=== PATIENT | male | born 1940 | race Caucasian/White ===

== ENCOUNTER 2020-04-21 | Inpatient (IN) | payer OTHER ==
[~2020-04-21] VITALS: Ht 162.6 cm; Wt 86.0 kg
--- NOTE | ~2020-04-21 | EMS ---
[address] [address] EMS Patient Care Report Name: ARSEN SCHOFIELD Room #: REG [facility]#: [id number] Admission: 04/21/20 Attend Phys: Discharge: Date of : 38 Report #: [id number] THIS REPORT FOR: //name// Report Transmitted: 04/20/2020 23:45 EMS Care Summary [facility] MED-ACT Incident [id number] @ 04/20/2020 23:24 Incident Location [address] [place] [address] Patient ARSEN SCHOFIELD Male, 79 Years 1940 Patient Address [address] [place] [address] Patient History Asthma,Hypertension (HTN),Back Pain (Chronic),Type 2 Diabetes, Patient Allergies Iodine, Patient Medications Potassium, Eliquis, Meclizine, Pramipexole, Gabapentin, Atorvastatin, Pantoprazole, Metoprolol, Aspirin, Torsemide, Amiodarone, Oxycodone, Chief Complaint Suicidal ideations Disposition Transported No Lights/[place] Reason Psychiatric Problem/Abnormal Behavior/Suicide Attempt Transported To [facility] Narrative Arriving on scene to find the patient, Arsen Schofield, standing at the doorway [address] [address] EMS Patient Care Report Name: ARSEN SCHOFIELD Room #: REG ER [facility]#: [id number] Admission: 04/21/20 Attend Phys: Discharge: Date of : 38 Report #: [id number] and appearing to be upset. Arsen informed EMS that he "just want to end the pain once and for all". He stated that he has been feeling like this for a couple of weeks. He stated that he had informed his daughter and talk to a doctor about his pain and suicidal ideations. When EMS asked what they told him? He replied "just to keep on eye on me". He stated that he had a plan to harm himself with overdosing on narcotics. Arsen rated his lower back pain to be a 10 out of 10 and described it as shooting down to his right leg. He stated that he would like to be transported to [facility]. He was able to ambulate out of his apartment and onto the cot. Transporting to [facility], there were no other additional findings on continuous assessments. Arriving at [facility] ED, Arsen was taken to room 8 and moved via lateral sheet drag onto the hospital bed. Report and care was given to RN. Initial Vitals @23:55P: 115,BP: 136/78,Glucose: 98,SpO2: 96, @23:45P: 92,SpO2: 96, @23:35P: 73,R: 16,BP: 154/79,Pain: 10/10,GCS: 15,Temp: 97.6F,SpO2: 97,Revised Trauma: 12, Assessments @23:44MENTAL:Person Oriented,Time Oriented,Event Oriented,Place Oriented,SKIN:HEENT:Head/Face: No Abnormalities,Neck/Airway: No Abnormalities,LUNG SOUNDS:General: No Abnormalities,ABDOMEN:General: No Abnormalities,PELVIS//GI:No Abnormalities,EXTREMITIES:Left Arm: Other,Right Arm: Other,Left Leg: No Abnormalities,Right Leg: No Abnormalities,PULSE:NEURO:No Abnormalities, Impression Suicidal Ideation Procedures @23:50Oxygen FlowRate: 2 Device: Nasal Cannula (NC) Response: ImprovedSucceeded Timeline 23:21,Call Received 23:21,Psap Call 23:24,Dispatched 23:25,En Route 23:28,On Scene 23:32,At Patient 23:35,BP: 154/79 M,PULSE: 73,RR: 16 R,SPO2: 97 Ox,ETCO2: ,BG: ,PAIN: 10,GCS: 15, 23:43,Depart Scene 23:45,BP: / M,PULSE: 92,RR: R,SPO2: 96 Ox,ETCO2: ,BG: ,PAIN: ,GCS: , 23:50,Oxygen FlowRate: 2 Device: Nasal Cannula (NC) Response: ImprovedSucceeded, 23:55,BP: 136/78 M,PULSE: 115,RR: R,SPO2: 96 Ox,ETCO2: ,B,PAIN: ,GCS: , [facility] [address] [place] [address] EMS Patient Care Report Name: ARSEN SCHOFIELD [id number] Admission: 04/21/20 Attend Phys: Discharge: Date of : 38 Report #: [id number] 23:57,At Destination 00:12,Call Closed Disclaimer v1.1 Copyright 2020 [employer] This EMS Care Summary contains data elements from the applicable legal record (which may be displayed differently). It is designed to provide pertinent information for the following purposes: continuity of care, clinical quality, and state data reporting. The complete legal record is available to ED staff and administrators of the receiving hospital in [employer]'s Patient Tracker. All data is provided "as is."
[2020-04-21 00:02] VITALS: BP 119/82
[2020-04-21 01:46] LABS: URINE BILIRUBIN NEGATIVE (Negative); URINE BLOOD NEGATIVE (Negative); URINE CLARITY CLEAR; URINE COLOR YELLOW; URINE GLUCOSE-RANDOM* NEGATIVE (Negative); URINE KETONES NEGATIVE (Negative); URINE LEUKOCYTES-REFLEX NEGATIVE (Negative); URINE NITRITE-REFLEX NEGATIVE (Negative); URINE PROTEIN (DIPSTICK) NEGATIVE (Negative); URINE UROBILINOGEN 0.2 E.U./dl (0.2-1.0)
[2020-04-21 01:50] LABS: ABSOLUTE NEUTROPHILS 2.8 thou/uL (1.4-8.2); BASOPHILS 1.4 % (0.0-2.0); EOSINOPHILS 4.3 % (0.0-3.0); HEMATOCRIT 37.2 % (42.0-52.0); LYMPHOCYTES 25.1 % (24.0-44.0); MCH 31.8 pg (26.0-34.0); MCHC 34.8 g/dL (28.0-37.0); MCV 91.4 fL (80.0-100.0); MONOCYTES 9.5 % (1.0-8.0); PLATELET COUNT 170 thou/uL (150-400); POLYS 59.7 % (36.0-66.0); RBC 4.07 mil/uL (4.50-6.00); RDW 14.2 % (10.5-14.5); WBC 4.6 thou/uL (4.0-11.0)
[2020-04-21 01:52] LABS: ANION GAP 8 mmol/L (7-16); BUN 6 mg/dL (7-18); CALCIUM 8.1 mg/dL (8.5-10.1); CHLORIDE 99 mmol/L (98-107); CO2 25 mmol/L (21-32); CREATININE 0.9 mg/dL (0.7-1.3); GLUCOSE 101 mg/dL (74-106); POTASSIUM 3.8 mmol/L (3.5-5.1); SODIUM 132 mmol/L (136-145)
[2020-04-21 01:55] LABS: AMP/METHAMP Negative (Negative); BARBITURATES Negative (Negative); BENZODIAZEPINES Negative (Negative); COCAINE Negative (Negative); METHADONE Negative (Negative); OPIATES Negative (Negative); PCP Negative (Negative)
[2020-04-21 01:59] LABS: ALBUMIN 3.2 g/dL (3.4-5.0); SALICYLATE < 2.8 mg/dL (2.8-20.0); SGOT 23 U/L (15-37); SGPT 29 U/L (30-65); TOTAL BILIRUBIN 0.4 mg/dL (0.2-1.0); TOTAL PROTEIN 6.1 g/dL (6.4-8.2)
--- NOTE | 2020-04-21 02:02 | NUR ---
CALLED [facility] FOR CONSULT
[2020-04-21] MEDS ORDERED: EFFER-K 10 MEQ10 ME1 PO (04:57)
[2020-04-21] MEDS ORDERED: ELIQUIS2.5 MG PO (04:57)
[2020-04-21] MEDS ORDERED: LIPITOR10 MG PO (04:58)
[2020-04-21] MEDS ORDERED: PERCOCET 5-3251 EACH PO (04:58)
[2020-04-21] MEDS ORDERED: PROTONIX 20 MG20 MG PO (04:59)
[2020-04-21] MEDS ORDERED: TOPROL XL100 MG PO (04:59)
[2020-04-21] MEDS ORDERED: TORSEMIDE5 MG PO (05:00)
[2020-04-21] MEDS ORDERED: ASA81BEC PO (05:00)
[2020-04-21] MEDS ORDERED: NEURONTIN100 MG (05:00)
[2020-04-21] MEDS ORDERED: MECLIZINE HCL25 M1 (05:00)
[2020-04-21] MEDS ORDERED: PACERONE100 MG (05:01)
[2020-04-21] MEDS ORDERED: NEURONTIN 400M400 M2 PO (05:03)
[2020-04-21] MEDS ORDERED: TORSEMIDE20 MG PO (05:28)
--- NOTE | 2020-04-21 08:58 | EKG ---
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: [facility] : 1940 Requested By: Ishmael Perales Order Number: [id number] MD: Ron Ferrer Measurements Intervals Mcleod Rate: 61 P: IN: 166 QRS: -10 QRSD: 148 T: -5 QT: 480 QTc: 484 Interpretive Statements Sinus rhythm Right bundle branch block Possible inferior infarct, age indeterminate Compared to ECG 01/12/2005 16:43:38 Right bundle-branch block now present Electronically Signed On 04-21-2020 8:58:44 CDT by Ron Ferrer [email or web address] <ELECTRONICALLY SIGNED> By: Ron Ferrer MD, [facility] 04/21/20 0858 0120 0120 Ron Ferrer MD, [facility] /EPI
[2020-04-21 13:32] VITALS: BP 129/77
[2020-04-21 14:50] VITALS: BP 105/72
--- NOTE | 2020-04-21 14:54 | NUR ---
Sw met with pt to complete the intake assessment and TP, this incldued getting a correct phone nymber for May his daughter [phone]. This was reported to the unit control worker to correct.
--- NOTE | 2020-04-21 14:55 | NUR ---
PT ARRIVED [facility]IA [facility]. PT CALLED [facility] HOTLINE FOR THOUGHTS OF WANTING TO TAKE HIS OXYCODONE MEDICATION TO NOT WAKE UP. PT HAS DEALT WITH PAIN TO HANDS, ARMS, LEGS, AND BACK FOR 2-3 YEARS. PT LIVES ON OWN. PT USES WALKER TO AMBULATE. PT STATED PAIN IS 8 ON 1-10 SCALE AND FEELS LIKE AN ACHE TO THROBBING. PT IS PURSED BREATHING WITH ADMISSION. PT STATED HE SEEN MORTGAGE PROCESSING MANAGER THIS WEEK AND HE SAID HIS LUNGS ARE GOOD. PT STATED HE GOES TO [facility] FOR PAIN OR SOA. PT DOES USE CPAP AT NIGHT FOR SLEEP APNEA. PT STATED HE HAS RESTLESS LEGS AND HIS FATHER, SON, AND BROTHER HAS IT ALSO. HE SAYS HIS APPETITE IS LOW AND NOT BEEN HUNGRY SINCE SAT. STATED HE CAN EAT POPCORN OK. WHILE SITTING WITH THIS SAFETY ASSISTANT PT STATED HE WAS GETTING HUNGRY. PT DRINKING WATER OK. PT HAS DEFIBULATOR TO LEFT CHEST. LUNGS ARE CLEAR.
--- NOTE | 2020-04-21 15:56 | NUR ---
Pt did not join group because he was visiting with the
[2020-04-21] MEDS ORDERED: DULOXETINE HCL30 MG PO (16:02)
[2020-04-21] MEDS ORDERED: MIRAPEX0.5 MG PO (16:02)
[2020-04-21] MEDS ORDERED: MELOXICAM15 MG PO (16:03)
[2020-04-21 17:39] LABS: FOLIC ACID 10.6 ng/mL (8.6-58.9); TSH 0.882 uIU/mL (0.358-3.740)
--- NOTE | 2020-04-21 19:01 | NUR ---
CALLED RAFA HIS DAUGHTER, ABOUT BRINGING HIS CPAP FROM HOME. LEFT MESSAGE ON PHONE AND SHE CALLED BACK. UNABLE TO TALK TO HER LEFT MESSAGE AGAIN.
[2020-04-21 19:34] VITALS: BP 102/66
--- NOTE | 2020-04-22 02:34 | NUR ---
Pt alert and oriented x3. Pt was in his room at time of assessment. Pt was calm and cooperative with assessment. Pt agreed to anxiety but denied depression. Pt denies SI/HI/AH/VH. Pt took meds whole. Percoset given for back pain of 6. Pt's dtr brought pt's home cpap. Dr Montenegro ok'd pt using cpap. Pt is 1:1 while on cpap due to being admitted for SI. Pt voids independently via urianls. Pt ambulates via walker. Fall precautions in place. Pt has a rojas in reach to ring when needing assistance. Will continue to monitor.
[2020-04-22 06:58] LABS: CALCIUM 8.2 mg/dL (8.5-10.1)
[2020-04-22 07:40] VITALS: BP 103/61
[2020-04-22 10:46] VITALS: BP 103/61
--- NOTE | 2020-04-22 11:19 | NUR ---
Pt was up and about using walker this Am. Arsen ate most of the food offered this am .Pt was seen by Dr Ching . Upon Dr Ching 's request Arsen's daughter who is Sherif DPOD to find out if Heparin is an allery. Both Arsen and OLEKSANDR said "NO" to any other allergy besides Iodine in contrast dye. "YES" to wanting to be DNR. Dr Ching notified via phone. Arsen laughted when asked if he had any SI, HI or Hallucinations of any kind, and said 'NO'. Pain level was 4/5 and refused any pain medication offered at this time. Arsen's assesment was as follows, heart regular , pedal pulse equal, bowel sound active. No edema noted. Arsen talked to his daughter via phone and said he was happy he did. DNR braclet applied to Sherif arm.
[2020-04-22 19:32] VITALS: BP 99/66
--- NOTE | 2020-04-22 21:53 | NUR ---
Care assumed of patient at 1915: Patient seated in bed at start of shift reading. Alert and oriented x4. Calm, pleasant and cooperative. Denies SI/HI/AH/VH. States that he feels "much better" since he has been in the hospital. Patient denies depression. Reports feeling anxious to get home. Patient goal directed. Reports pain to his back rated 5/10. Patient received PRN pain medication prior to shift starting. States medication was helpful. Patient took HS medication whole without difficulty. Declined HS snack but requested orange juice instead. Patient continent of bladder. Patient did request a Bible and one was found for him. Patient appreciative. Patient currently seated in dayroom reading Bible at this time.
[2020-04-23 07:50] VITALS: BP 120/67
--- NOTE | 2020-04-23 09:16 | NUR ---
Assumed care 0700. Received Tylenol PRN for right sided back pain this AM. Went to lie down right after breakfast, Got an applesauce after breakfast to fill him up. Alert and oriented to person, day, time, place, purpose. Says he no longer feels suicidal. He is encouraged by anticipation of seeing pain clinic. Denies suicidal ideation. Denies HI. Conversation is not with delusional content. No reports/indicators of AH/VH. He ws instructed on availability of hotlines to call should hefeel suicidal in the future. IM and SQ meds discussed and their benefits.
--- NOTE | 2020-04-23 16:11 | NUR ---
Quiet, cooperative, compliant. Goes to bed when not engaged in program. No further offered complaints.
[2020-04-23 19:35] VITALS: BP 103/61
[2020-04-23 21:45] VITALS: BP 103/61
--- NOTE | 2020-04-24 01:47 | NUR ---
Assumed care of patient this pm shift. Patient was sitting in the mileu with peers watching tv at the start of the shift. Patient in good spirits calm and cooperative. Patient is medication adherent and takes medications as scheduled. Patient states that he is ready to get out of here and to pain management for his back. Patient takes medications whole with thin fluids. Patient ambulates with a walker. Patients affect is euthymic. Patient is alert and oriented to time, place, person, and situation. Patients assessment shows no signs of acute distress. Breath sounds are clear, bowel sounds hypoactive, s1 s2 heard with auscultation. We will continue to monitor per hospital policy.
[2020-04-24 06:00] LABS: ABSOLUTE NEUTROPHILS 3.5 thou/uL (1.4-8.2); BASOPHILS 1.2 % (0.0-2.0); EOSINOPHILS 4.7 % (0.0-3.0); HEMOGLOBIN 14.5 gm/dL (14.0-18.0); LYMPHOCYTES 27.9 % (24.0-44.0); MCH 31.1 pg (26.0-34.0); MCHC 33.7 g/dL (28.0-37.0); MCV 92.3 fL (80.0-100.0); MONOCYTES 9.5 % (1.0-8.0); PLATELET COUNT 210 thou/uL (150-400); POLYS 56.7 % (36.0-66.0); RBC 4.66 mil/uL (4.50-6.00); RDW 14.2 % (10.5-14.5); WBC 6.1 thou/uL (4.0-11.0)
[2020-04-24 06:09] LABS: CALCIUM 8.4 mg/dL (8.5-10.1); CREATININE 1.6 mg/dL (0.7-1.3); MAGNESIUM 2.1 mg/dL (1.8-2.4); POTASSIUM 3.6 mmol/L (3.5-5.1)
[2020-04-24 07:16] VITALS: BP 99/61
--- NOTE | 2020-04-24 11:49 | NUR ---
Pt was oob in hallway with walker this am. Pt took SQ shot with heparin and IM shot with Vit B12, with no resistance . Oral medication taken as well. pt ate all food offered to him this am. Assesment as follows, lungs x2 clear, bowel sounds faint , pedeal pulse equalx2. Pt was unable to get to room to urinate this am, he asked to have a change of clothes,and was give as he asked. this according to Arsen was the first time this happened. DR aware that pt c/o constipation. Fluids encouraged , staff continues to observe pt.
--- NOTE | 2020-04-24 14:51 | NUR ---
JANELLE had a meeting with Pt, Dr. Clayton and Pt's daughter Elis. Pt will be discharged 04/25/20 @ 3:30pm. Elis will be transporting Pt. Pt will need a psychiatry appointment with Dr. Toro. An appointment with his PCP for a referral to a pain mangement clinic. Pt has appointment with Dr. Toro 05/24/2020 @ 2:30 pm. JANELLE reached out to Dr. Baltazar ( Dr. Draper) [phone] for a call back.
[2020-04-24 19:14] VITALS: BP 103/52
[2020-04-24 19:20] VITALS: BP 132/70
--- NOTE | 2020-04-25 04:54 | NUR ---
04-24-20 CARE TRANSFERED 1914 OBSERVED PT SITTING IN DAY ROOM. 1919 PT AAOX3, CALM AND COOPERATIVE, VS MANUAL LEFT ARM SITTING B/P 132/70, P 60, R 16, T 97.4 TEMPORAL; O2 SAT 99% RA RR EVEN AND NONLABORED. PT REPORTS PAIN 6 ON 0-10 SCALE. PT DENIES SI/SH/HI/VAH. PT REPORTED HAVING A BM TODAY AFTER DINNER. DURING MEDICATION ADMIN PT HAD NO DIFFICULTIES. PT REQUESTED CPAP, AND OBSERVED PT GETTING CPAP ON, DURING THIS TIME PT IS TO BE 1:1 WHILE USING CPAP; LATER PT REPORTED LOWER BACK AND NASUATED PT SCALED PAIN 8 ON 0-10 SCALE PRN MEDICATION ADMIN. THROUGHOUT NURSING ROUNDS ZERO S/S OF ACUTE EMOTIONAL OR MEDICAL DISTRESS NOTED. WILL CONTINUE TO MONITOR PER [facility] PROTOCOL.
[2020-04-25 06:27] LABS: CALCIUM 7.9 mg/dL (8.5-10.1); CREATININE 1.4 mg/dL (0.7-1.3); POTASSIUM 3.6 mmol/L (3.5-5.1)
[2020-04-25 07:23] VITALS: BP 99/54
[2020-04-25] MEDS ORDERED: REMERON 30 MG T30 M1 PO (11:51)
[2020-04-25] MEDS ORDERED: COLACE 100 MG100 MG PO (11:53)
[2020-04-25] MEDS ORDERED: VITAMIN D325 MC1 PO (11:55)
--- NOTE | 2020-04-25 12:20 | NUR ---
SW met with Pt and completed a safety plan. SW provided discharge follow up appointment printout to Pt.
[2020-04-25 12:41] VITALS: BP 99/55
--- NOTE | 2020-04-25 16:37 | NUR ---
DISCHARGE INSTRUCTIONS REVIEWED WITH PT INCLUDING MEDICATIONS DOSES,TIMES,ADMINISTRATION AND PRESCRIPTIONS PROVIDED-PT STATES HE DOES HIS OWN MEDICATION AT HOME AND DENIES QUESTIONS/CONCERNS. DENIES SI/SH/HI AND STATES FEELS EAGER TO LEAVE. DOES REPORT BACK PAIN RATED AN 8 ON 1-10 SCALE AT APPROX. 1100-REQUESTED AND RECEIVED PERCOCET5/325 PO PRN WITH STATED GOOD RESULTS-PAIN DECREASING TO APPROX 3 PRIOR TO DC. AT 1400 ACCOMPNIED TO DAUGHTER RAFA DAILEY VIA WC ACCOMPNIED BY HOSPITAL STAFF. PERSONAL BELONGINGS INCLUDING C-PAP MACHINE AND ENVELOPE STORED IN SECURITY SENT WITH PT AT TIME OF DC
== END 2020-04-25 14:00 | disposition home or self-care (01) | DRG 881 ==
LOC: ER → EROBS 13:33 → SBH 13:33
PROVIDERS: Emergency Medicine; Internal Medicine; Nurse Practitioner; ADMIT Psychiatry & Neurology Psychiatry; ATTEND Psychiatry & Neurology Psychiatry
DX: F32.9 Major depressive disorder, single episode, unspecified (principal); I11.0 Hypertensive heart disease with heart failure; R45.851 Suicidal ideations; E44.0 Moderate protein-calorie malnutrition; E11.9 Type 2 diabetes mellitus without complications; N40.0 Benign prostatic hyperplasia without lower urinary tract symptoms; E78.5 Hyperlipidemia, unspecified; M54.9 Dorsalgia, unspecified; I25.10 Atherosclerotic heart disease of native coronary artery without angina pectoris; Z60.2 Problems related to living alone; G47.33 Obstructive sleep apnea (adult) (pediatric); K59.00 Constipation, unspecified; I50.9 Heart failure, unspecified; M48.00 Spinal stenosis, site unspecified; G89.4 Chronic pain syndrome; Z20.828 Contact with and (suspected) exposure to other viral communicable diseases; Z86.73 Personal history of transient ischemic attack (TIA), and cerebral infarction without residual deficits; Z95.5 Presence of coronary angioplasty implant and graft; Z91.041 Radiographic dye allergy status; Z79.82 Long term (current) use of aspirin; Z79.899 Other long term (current) drug therapy; Z98.42 Cataract extraction status, left eye; Z90.49 Acquired absence of other specified parts of digestive tract
CPT/HCPCS: 10880

== ENCOUNTER 2020-05-02 10:58 | Emergency (ER) | payer OTHER ==
[~2020-05-02] VITALS: Ht 162.6 cm; Wt 85.3 kg
--- NOTE | ~2020-05-02 | EMS ---
[address] [address] EMS Patient Care Report Name: DEYSI LINTON Room #: REG [facility]#: [id number] Admission: 05/02/20 Attend Phys: Discharge: Date of : 38 Report #: [id number] THIS REPORT FOR: //name// Report Transmitted: 05/02/2020 12:52 EMS Care Summary [facility] MED-ACT Incident [id number] @ 05/02/2020 10:21 Incident Location [address] [place] [address] Patient DEYSI LINTON Male, 79 Years 1940 Patient Address [address] [place] [address] Patient History Asthma,Hypertension (HTN),Pacemaker/AICD,Back Pain (Chronic),Type 2 Diabetes, Patient Allergies Iodine, Patient Medications Amiodarone, Potassium, Pramipexole, Metoprolol, Torsemide, Eliquis, Atorvastatin, Pantoprazole, Aspirin, Gabapentin, Meclizine, Oxycodone, Chief Complaint "I just feel weak" Disposition Transported No Lights/[place] Dispatch Reason Unconscious/Fainting Transported To [facility] Narrative M1135 called to a 79 year old male patient complaining of "weakness" over the [facility] [address] [place] [address] EMS Patient Care Report Name: DEYSI LINTON Room #: REG ER [facility]#: [id number] Admission: 05/02/20 Attend Phys: Discharge: Date of : 38 Report #: [id number] past three days. Arrived to find patient in the care of Leonor OSEI sitting in his living room in no obvious distress. Patient's respirations were regular and unlabored, his skin color and condition were normal, and his affect was anxious but controlled. Patient reported he has felt "weak," and "dizzy" over the last "three days", and that it "got way worse today." Patient also reported episodically having "a hard time breathing." The times patient reported said difficulty, there was no noted increase work of breathing, respiratory rate, or any other noted change in patient condition. Patient also reported falling earlier today, but would not answer any further follow up questions - would simply state "no, no, no. I don't know." Patient generally poor historian and would not elaborate on his complaints. Patient reported being discharged from [facility] "last week" following a psychiatric hold for "wanting to kill myself." Patient denied chest pain or presence of any other pain. A: See assessments tab Patient contact made in patient's living room. History obtained from patient and report obtained from FD. Patient assisted to cot and secured per protocol. Patient moved to and loaded into ambulance without incident. Vitals assessed, physical exam performed. Transport [facility] ER initiated. 12 lead performed en route and transmitted to receiving facility due to presence of LBBB with no recorded history. 243 mg ASA given. Patient vitals and condition monitored throughout transport with no noted or reported changes. Biocom given en route. Patient care transferred to RNs at [facility] ER in room 12. Initial Vitals @10:42P: 94,SpO2: 96, @10:37P: 101,R: 16,BP: 147/99,Pain: 0/10,GCS: 15,SpO2: 96,Revised Trauma: 12, @10:50P: 115,R: 16,BP: 137/91,GCS: 15,SpO2: 95,Revised Trauma: 12, Assessments @10:28MENTAL:Person Oriented,Time Oriented,Place Oriented,Event Oriented,SKIN:HEENT:LUNG SOUNDS:General: Other,ABDOMEN:General: Other,PELVIS//GI:EXTREMITIES:Right Arm: Other,Left Arm: Other,Left Leg: No Abnormalities,Right Leg: No Abnormalities,PULSE:Radial: 2+ Normal,NEURO: Impression Generalized Weakness Procedures @10:4212-Lead ECGResponse: UnchangedSucceeded@10:45Aspirin - 243 Milligrams (mg) - OralResponse: Unchanged@10:28ALS AssessmentResponse: UnchangedSucceeded [facility] [address] [place] [address] EMS Patient Care Report Name: LINTONDEYSI TYRELL Room #: REG [facility]#: [id number] Admission: 05/02/20 Attend Phys: Discharge: Date of : 38 Report #: [id number] Timeline 10:17,Call Received 10:17,Psap Call 10:21,Dispatched 10:21,En Route 10:23,On Scene 10:26,At Patient 10:28,ALS Assessment,Response: UnchangedSucceeded, 10:37,Depart Scene 10:37,BP: 147/99 M,PULSE: 101,RR: 16 R,SPO2: 96 Ox,ETCO2: ,BG: ,PAIN: 0,GCS: 15, 10:42,12-Lead ECG,Response: UnchangedSucceeded, 10:42,BP: / M,PULSE: 94,RR: R,SPO2: 96 Ox,ETCO2: ,BG: ,PAIN: ,GCS: , 10:45,Aspirin - 243 Milligrams (mg) - Oral,Response: Unchanged 10:50,BP: 137/91 M,PULSE: 115,RR: 16 R,SPO2: 95 Ox,ETCO2: ,BG: ,PAIN: ,GCS: 15, 10:53,At Destination 11:16,Call Closed Disclaimer v1.1 Copyright 2020 [employer] This EMS Care Summary contains data elements from the applicable legal record (which may be displayed differently). It is designed to provide pertinent information for the following purposes: continuity of care, clinical quality, and state data reporting. The complete legal record is available to ED staff and administrators of the receiving hospital in [employer]'s Patient Tracker. All data is provided "as is."
[~2020-05-02 10:58] MED LIST: ASA81BEC PO; COLACE 100 MG100 MG PO; DULOXETINE HCL30 MG PO; EFFER-K 10 MEQ10 ME1 PO; ELIQUIS2.5 MG PO; LIPITOR10 MG PO; MECLIZINE HCL25 M1; MELOXICAM15 MG PO; MIRAPEX0.5 MG PO; NEURONTIN 400M400 M2 PO; NEURONTIN100 MG; PACERONE100 MG; PERCOCET 5-3251 EACH PO; PROTONIX 20 MG20 MG PO; REMERON 30 MG T30 M1 PO; TOPROL XL100 MG PO; TORSEMIDE20 MG PO; TORSEMIDE5 MG PO; VITAMIN D325 MC1 PO
[2020-05-02] MEDS ORDERED: DULOXETINE HCL30 MG PO (11:11)
[2020-05-02] MEDS ORDERED: MELOXICAM15 MG PO (11:12)
[2020-05-02] MEDS ORDERED: ALBUTEROL2.5 MG/3 M INH (11:12)
[2020-05-02] MEDS ORDERED: PRAMIPEXOLE DI0.5 MG PO (11:12)
[2020-05-02 11:28] LABS: ABSOLUTE NEUTROPHILS 3.7 thou/uL (1.4-8.2); BASOPHILS 1.4 % (0.0-2.0); EOSINOPHILS 3.9 % (0.0-3.0); HEMOGLOBIN 13.6 gm/dL (14.0-18.0); LYMPHOCYTES 22.3 % (24.0-44.0); MCH 31.3 pg (26.0-34.0); MCHC 33.9 g/dL (28.0-37.0); MCV 92.3 fL (80.0-100.0); MONOCYTES 10.9 % (1.0-8.0); PLATELET COUNT 177 thou/uL (150-400); POLYS 61.5 % (36.0-66.0); RBC 4.33 mil/uL (4.50-6.00); RDW 13.9 % (10.5-14.5); WBC 5.9 thou/uL (4.0-11.0)
[2020-05-02 11:38] LABS: CALCIUM 8.3 mg/dL (8.5-10.1); CREATININE 1.3 mg/dL (0.7-1.3); POTASSIUM 4.7 mmol/L (3.5-5.1)
[2020-05-02 11:56] LABS: ALBUMIN 3.6 g/dL (3.4-5.0); TOTAL BILIRUBIN 0.6 mg/dL (0.2-1.0); TOTAL PROTEIN 6.7 g/dL (6.4-8.2)
[2020-05-02 13:04] LABS: APTT 28.2 Seconds (24.5-32.8); PROTIME 9.8 Seconds (9.3-11.4)
[2020-05-02 15:48] LABS: URINE BILIRUBIN NEGATIVE (Negative); URINE BLOOD NEGATIVE (Negative); URINE CLARITY CLEAR; URINE COLOR YELLOW; URINE GLUCOSE-RANDOM* NEGATIVE (Negative); URINE KETONES TRACE (Negative); URINE LEUKOCYTES-REFLEX NEGATIVE (Negative); URINE NITRITE-REFLEX NEGATIVE (Negative); URINE PROTEIN (DIPSTICK) 1+ (Negative); URINE SPECIFIC GRAVITY 1.025 (1.005-1.035)
--- NOTE | 2020-05-02 15:57 | EKG ---
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: REINALDO : 1940 Requested By: Felix Schulte Order Number: [id number] MD: Tj Ferreira Measurements Intervals Marshall Rate: 71 P: -51 UT: 166 QRS: -85 QRSD: 140 T: 65 QT: 455 QTc: 495 Interpretive Statements Atrial-ventricular dual-paced complexes No further analysis attempted due to paced rhythm Compared to ECG 04/21/2020 01:20:02 Sinus rhythm no longer present Right bundle-branch block no longer present Myocardial infarct finding no longer present Electronically Signed On 05-02-2020 15:56:52 CDT by Tj Ferreira [email or web address] <ELECTRONICALLY SIGNED> By: Tj Ferreira MD 05/02/20 1556 1058 1058 Tj Ferreira MD /EPI
[2020-05-02 16:11] LABS: CASTS None Seen /LPF (None Seen); MUCUS >6 Heavy strn/LPF (None Seen); SQUAMOUS 0-3 Few /LPF (0-3)
[2020-05-02 16:12] LABS: BACTERIA-REFLEX None Seen /HPF (None Seen); CRYSTALS None Seen /LPF (None Seen); URINE RBC None Seen /HPF (0-2); URINE WBC-REFLEX 0-5 Rare /HPF (0-5)
[2020-05-02] MEDS ORDERED: MECLIZINE HCL25 M1 PO (16:21)
[2020-05-02 16:35] VITALS: BP 141/82
[2020-05-02] MEDS ORDERED: ATIVAN0.5 M1 PO (16:37)
== END 2020-05-02 16:35 | disposition home or self-care (01) ==
LOC: ER 10:58
PROVIDERS: Emergency Medicine
DX: R42 Dizziness and giddiness (principal); R06.00 Dyspnea, unspecified; F12.90 Cannabis use, unspecified, uncomplicated; Z91.041 Radiographic dye allergy status; Z79.82 Long term (current) use of aspirin; Z79.899 Other long term (current) drug therapy